=== PATIENT | female | born 1940 | race Caucasian/White ===

== ENCOUNTER 2024-09-30 14:55 | Outpatient (CLI) | payer MEDICARE, BC ==
--- NOTE | 2024-09-30 19:42 | RADIOLOGY REPORT ---
EXAM: CT Chest Without Intravenous Contrast CLINICAL INDICATION: CHRONIC COUGH TECHNIQUE: Axial computed tomography images of the chest without intravenous contrast. This CT exam was performed using one or more of the following dose reduction techniques: automated exposure cont rol, adjustment of the mA and/or kV according to patient size, and/or use of iterative reconstruction technique. CONTRAST: COMPARISON: No relevant prior studies available. FINDINGS: LUNGS AND PLEURAL SPACES: Lung emphysema/COPD. Right apical scarring. Otherwise, no suspicious pul monary nodule or focal consolidation. No significant effusion. No pneumothorax. HEART: Unremarkable. No cardiomegaly. No significant pericardial effusion. No significant moreno ry artery calcifications. MEDIASTINUM: A few prominent mediastinal lymph nodes measuring up to 6 mm. Small hiatal hernia. BONES/JOINTS: Unremarkable. No acute fracture. SOFT TISSUES: Unremarkable. VASCULATURE: Scattered calcified atherosclerotic disease of aorta. No thoracic aortic aneurysm. LYMPH NODES: See above. LIVER: Fatty liver. OTHER FINDINGS: Comparison None. . IMPRESSION: Lung emphysema/COPD. Right apical scarring. Otherwise, no suspicious pulmonary nodule or focal cons olidation. HS:Y
== END 2024-09-30 23:59 | disposition home or self-care (01) ==
LOC: RAD 14:55
PROVIDERS: ATTEND Physician Assistant
DX: J98.4 Other disorders of lung (principal); J45.990 Exercise induced bronchospasm; R05.3 Chronic cough; K76.0 Fatty (change of) liver, not elsewhere classified; K44.9 Diaphragmatic hernia without obstruction or gangrene; I70.0 Atherosclerosis of aorta
CPT/HCPCS: 71250

== ENCOUNTER 2024-10-01 06:42 | Outpatient (CLI) | payer MEDICARE, BC ==
[~2024-10-01] VITALS: Ht 161.3 cm; Wt 61.2 kg
[2024-10-01] MEDS: albuterol 2.5 MG/3 ML nebule NEB ONE (07:29)
[2024-10-01 07:30] VITALS: PULSE 84; RESP 15; O2SAT 96
[2024-10-01 07:41] VITALS: PULSE 76; RESP 14
--- NOTE | 2024-10-01 17:15 | PROCEDURE NOTE - Respiratory ---
Procedure Note-Respiratory Providers to CC Copies To 1: KLAUS AMAYA PA-C Procedure Name: This is a spirometry study dated October 01, 2024. The spirometry study was performed both before and after inhaled bronchodilator. Spirometry measurements: The forced vital capacity is normal. The FEV1 is at the lower limit of normal. The FEV1 ratio is clearly reduced. Several of the flow rate measurements show substantial reduction. After bronchodilator was administered, the flow rates show very slight improvement. Conclusion: This study is abnormal. There is evidence for obstructive ventilatory defect in the [id number] category. The patient improves very slightly with inhaled bronchodilator. These findings are consistent with the patient's diagnosis of asthma. Continued use of bronchodilator medication is recommended for this patient. We have no previous studies for comparison. GUDELIA ZAMORA MD Oct 01, 2024 17:15
== END 2024-10-01 23:59 | disposition home or self-care (01) ==
LOC: RT 06:42
PROVIDERS: ATTEND Physician Assistant
DX: J45.990 Exercise induced bronchospasm (principal); R05.3 Chronic cough
CPT/HCPCS: 94060; 94760

== ENCOUNTER 2024-12-15 12:18 | Outpatient (CLI) | payer MEDICARE, BC ==
--- NOTE | 2024-12-15 19:07 | CARDIOLOGY REPORT ---
APPROVED REPORT EXAM: Comprehensive 2D, Doppler, and color-flow Echocardiogram. Patient Location: OUT-PATIENT Blood Pressure: 154/71 mmHg Heart Rate: 73 bpm Indications Supraventricular Tachycardia WEIGHT CHECKER: Faheem Carey MD No Previous ECHO 2D Dimensions LA Diam 3.0 cm IVSd 0.7 (0.7-1.1cm) LVDd 4.2 cm PWd 0.7 (0.7-1.1cm) IVSs 0.8 (0.8-1.2cm) LVDs 3.0 (2.5-4.0cm) PWs 1.4 (0.8-1.2cm) LVOT Diameter 1.96 (1.8-2.4cm) LVEF(%) 53.4 (>50%) IVC 16.67 mm FS (%) 27.2 % SV 41.6 ml M-Mode Dimensions Left Atrium(MM) 3.13 (2.5-4.0cm) Aortic Root 2.95 (2.2-3.7cm) MV EPSS 0.7 (<0.5cm) Aortic Valve AoV Peak Italo. 128.8 cm/s AoV VTI 24.2 cm AO Peak GR. 6.6 mmHg AO Mean GR. 3 mmHg LVOT VTI 22.40 cm LVOT Peak Italo. 123.5 cm/s GULSHAN (VMAX) 2.90 cm2 GULSHAN (VTI) 2.80 cm2 Mitral Valve MV E Velocity 111.1 cm/s MV DECEL TIME 174 ms MV A Velocity 110.3 cm/s MV PHT 57 ms E/A Ratio 1.0 MVA (PHT) 3.86 cm2 TDI E/Medial E' 14.6 Pulmonary Valve PV Peak Velocity 65.6 cm/s PV Peak Grad. 2 mmHg Tricuspid Valve TR P. Velocity 263 cm/s RAP ESTIMATE 10 mmHg TR Peak Gr. 28 mmHg RVSP 38 mmHg LEFT VENTRICLE Normal LV size and wall thickness. Overall systolic function is normal. LVEF is 55-60%. RIGHT VENTRICLE RV is mildly dilated with normal function. Elevated right heart pressures with an RVSP of 38 mmHG. ATRIA The left atrium size is normal. AORTIC VALVE Trileaflet AV appears mildly sclerotic without stenosis. No insufficiency. MITRAL VALVE Mild mitral annular calcification without stenosis. Trace regurgitation. TRICUSPID VALVE The tricuspid valve is normal in structure with mild regurgitation. PULMONIC VALVE The pulmonary valve is normal in structure with physiologic insufficiency. GREAT VESSELS The aortic root is normal in size. The ascending aorta is normal in size. The IVC is normal in size and collapses >50% with inspiration. PERICARDIUM Normal pericardium. No effusion. Other Information Study Quality: Adequate Conclusion Normal LV size and wall thickness. Overall systolic function is normal. LVEF is 55-60%. RV is mildly dilated with normal function. Elevated right heart pressures with an RVSP of 38 mmHG. The left atrium size is normal. Trileaflet AV appears mildly sclerotic without stenosis. No insufficiency. Mild mitral annular calcification without stenosis. Trace regurgitation. The tricuspid valve is normal in structure with mild regurgitation. Normal pericardium. No effusion.
== END 2024-12-15 23:59 | disposition home or self-care (01) ==
LOC: CARD DIAG 12:18
PROVIDERS: ATTEND Physician Assistant
DX: I08.8 Other rheumatic multiple valve diseases (principal); I47.10 Supraventricular tachycardia, unspecified
CPT/HCPCS: 93306